=== PATIENT | female | born 1980 | race Caucasian/White ===

== ENCOUNTER 2021-02-27 15:19 | Inpatient (IN) ==
[2021-02-27] MEDS ORDERED: DEXTROSE 50% 25 GM/50 ML VIAL IV ONE (15:47)
[2021-02-27] MEDS ORDERED: SODIUM CHLORIDE 0.9% 500 ML IV STA ×2 (16:33→18:56)
[2021-02-27] MEDS ORDERED: ONDANSETRON 4 MG/2 ML VIAL IV ONE (16:33)
[2021-02-27] MEDS ORDERED: DEXAMETHASONE 10 MG/1 ML VIAL ONE (16:53)
[2021-02-27 17:31] LABS: Basophils % 0.2 % (0.0-0.8); Hematocrit 40.9 VOL% (35.7-47.0); Hemoglobin 13.3 GM/DL (12.0-16.0); Immature Granulocytes % 1.4 %; Immature Granulocytes Absolute 0.08 #; Lymphocytes # 0.5 10*3/uL (1.4-4.0); Lymphocytes % 8.4 % (21.3-54.2); Mean Corpuscular HGB Conc 32.5 GM/DL (32-36); Mean Corpuscular Volume 90.1 FL (87-102); Mean Platelet Volume 9.6 FL (9.6-12.0); Monocytes % 3.4 % (1.7-12.7); Neutrophils % 86.6 % (38.7-73.9); Platelet Count 294 T/CUMM (130-400); Red Blood Count 4.54 MC/CUMM (3.8-5.5); Red Cell Distribution Width 12.5 % (9.3-17.3); White Blood Count 5.9 T/CUMM (4-12)
[2021-02-27] MEDS: DEXAMETHASONE 10 MG/1 ML VIAL IV SCH (17:31)
[2021-02-27 17:44] LABS: INR 0.9; PT Patient Result 10.1 SECS (10.5-12.0)
[2021-02-27 17:50] LABS: Alanine Aminotransferase 78 U/L (13-56); Albumin 3.1 G/DL (3.4-5.0); Alkaline Phosphatase 99 U/L (45-117); Aspartate Amino Transferase 46 U/L (0-37); Bilirubin,Total < 0.39 MG/DL (0.20-1.00); Blood Urea Nitrogen 15 MG/DL (7-18); Calcium 8.4 MG/DL (8.5-10.1); Carbon Dioxide 29 MMOL/L (21-32); Estimated Glom Filtration Rate 111 ML/MIN; Glucose 112 MG/DL (74-106); Osmolality,Calculated 276.7 MOS/KG (273-304); Potassium 3.7 MMOL/L (3.5-5.1); Sodium 138 MMOL/L (136-145); Total Protein 6.8 G/DL (6.4-8.2)
[2021-02-27] MEDS ORDERED: LEVOFLOXACIN INJ 750 MG/150 ML PREMIX IV STA (18:56)
[2021-02-27] MEDS ORDERED: AZITHROMYCIN INJ 500 MG in SODIUM CHLORIDE 0.9% 250 ML IV ONE (19:48)
[2021-02-27] MEDS ORDERED: DEXTROSE 50% 25 GM/50 ML VIAL IV PRN (19:54)
[2021-02-27] MEDS ORDERED: GLUCAGON 1 MG VIAL IM PRN (19:54)
[2021-02-27] MEDS: ENOXAPARIN 40 MG/0.4 ML SYRINGE SUBCUT SCH (20:53)
[2021-02-27] MEDS: guaiFENesin 200 MG/10 ML UDCUP PO SCH (20:53)
[2021-02-27] MEDS: cefTRIAXone 1,000 MG in SODIUM CHLORIDE 0.9% 100 ML IV SCH (20:53)
[2021-02-27] MEDS: FAMOTIDINE 20 MG TABLET PO SCH (23:45)
[2021-02-27] MEDS: ASCORBIC ACID 500 MG TABLET PO SCH (23:46)
[2021-02-28] MEDS: guaiFENesin 200 MG/10 ML UDCUP PO SCH ×3 (05:17→20:05)
[2021-02-28 05:41] LABS: Basophils % 0.4 % (0.0-0.8); Hematocrit 37.6 VOL% (35.7-47.0); Hemoglobin 12.3 GM/DL (12.0-16.0); Immature Granulocytes % 3.1 %; Immature Granulocytes Absolute 0.07 #; Lymphocytes # 0.5 10*3/uL (1.4-4.0); Lymphocytes % 22.7 % (21.3-54.2); Mean Corpuscular HGB Conc 32.7 GM/DL (32-36); Mean Corpuscular Volume 90.2 FL (87-102); Mean Platelet Volume 9.7 FL (9.6-12.0); Monocytes % 7.9 % (1.7-12.7); Neutrophils % 65.9 % (38.7-73.9); Platelet Count 255 T/CUMM (130-400); Red Blood Count 4.17 MC/CUMM (3.8-5.5); Red Cell Distribution Width 12.4 % (9.3-17.3); White Blood Count 2.3 T/CUMM (4-12)
[2021-02-28 06:02] LABS: Alanine Aminotransferase 65 U/L (13-56); Albumin 2.7 G/DL (3.4-5.0); Alkaline Phosphatase 91 U/L (45-117); Aspartate Amino Transferase 36 U/L (0-37); Bilirubin,Direct < 0.100 MG/DL (0.0-0.20); Bilirubin,Indirect 0.3 MG/DL (0.0-1.0); Bilirubin,Total < 0.39 MG/DL (0.20-1.00); Total Protein 6.7 G/DL (6.4-8.2)
[2021-02-28 06:07] LABS: Ferritin 272.6 ng/mL (8-252)
[2021-02-28] MEDS ORDERED: REMDESIVIR 200 MG in SODIUM CHLORIDE 0.9% 210 ML IV ONE (09:00)
[2021-02-28] MEDS: DEXAMETHASONE 10 MG/1 ML VIAL IV SCH (09:16)
[2021-02-28] MEDS: DEXAMETHASONE 4 MG/1 ML VIAL IV SCH (09:17)
[2021-02-28] MEDS: ASCORBIC ACID 500 MG TABLET PO SCH ×2 (09:18→20:30)
[2021-02-28] MEDS: CHOLECALCIFEROL 1,000 UNIT TABLET PO SCH (09:18)
[2021-02-28] MEDS: FAMOTIDINE 20 MG TABLET PO SCH ×2 (09:18→20:30)
[2021-02-28] MEDS: ZINC GLUCONATE 50 MG TABLET PO SCH (09:18)
[2021-02-28 10:08] LABS: Calcium 8.4 MG/DL (8.5-10.1); Osmolality,Calculated 283.3 MOS/KG (273-304); Potassium 3.7 MMOL/L (3.5-5.1)
[2021-02-28] MEDS: AZITHROMYCIN INJ 500 MG in SODIUM CHLORIDE 0.9% 250 ML IV SCH (19:50)
[2021-02-28] MEDS: ENOXAPARIN 40 MG/0.4 ML SYRINGE SUBCUT SCH (20:05)
[2021-02-28] MEDS: cefTRIAXone 1,000 MG in SODIUM CHLORIDE 0.9% 100 ML IV SCH (21:35)
[2021-03-01] MEDS: guaiFENesin 200 MG/10 ML UDCUP PO SCH ×3 (03:47→21:02)
[2021-03-01 04:30] VITALS: BP 130/87
[2021-03-01 05:26] LABS: Basophils % 0.2 % (0.0-0.8); Hematocrit 35.5 VOL% (35.7-47.0); Hemoglobin 11.4 GM/DL (12.0-16.0); Immature Granulocytes % 2.7 %; Immature Granulocytes Absolute 0.13 #; Lymphocytes # 1.3 10*3/uL (1.4-4.0); Lymphocytes % 26.4 % (21.3-54.2); Mean Corpuscular HGB Conc 32.1 GM/DL (32-36); Mean Corpuscular Volume 91.7 FL (87-102); Mean Platelet Volume 9.4 FL (9.6-12.0); Neutrophils % 60.7 % (38.7-73.9); Platelet Count 310 T/CUMM (130-400); Red Blood Count 3.87 MC/CUMM (3.8-5.5); Red Cell Distribution Width 12.2 % (9.3-17.3); White Blood Count 4.8 T/CUMM (4-12)
[2021-03-01 05:53] LABS: Band Neutrophils 1 % (0-10); Lymphocytes 21 % (20-55); Platelet Estimate Adequate; Segmented Neutrophils 70 % (50-85); Total Cells Counted 100
[2021-03-01 05:54] LABS: Hypochromasia Slight; Microcytosis Slight
[2021-03-01 06:05] LABS: Albumin 2.3 G/DL (3.4-5.0); Bilirubin,Total 1.6 MG/DL (0.20-1.00); Calcium 8.5 MG/DL (8.5-10.1); Osmolality,Calculated 283.1 MOS/KG (273-304); Potassium 3.5 MMOL/L (3.5-5.1)
[2021-03-01] MEDS: DEXAMETHASONE 4 MG/1 ML VIAL IV SCH (08:18)
[2021-03-01] MEDS: ASCORBIC ACID 500 MG TABLET PO SCH ×2 (08:18→21:02)
[2021-03-01] MEDS: FAMOTIDINE 20 MG TABLET PO SCH ×2 (08:18→21:02)
[2021-03-01] MEDS: CHOLECALCIFEROL 1,000 UNIT TABLET PO SCH (08:18)
[2021-03-01] MEDS: ZINC GLUCONATE 50 MG TABLET PO SCH (08:18)
[2021-03-01] MEDS: REMDESIVIR 100 MG in SODIUM CHLORIDE 0.9% 100 ML IV SCH (09:13)
[2021-03-01] MEDS: DEXAMETHASONE 10 MG/1 ML VIAL IV SCH (09:40)
[2021-03-01] MEDS ORDERED: ALPRAZolam 0.5 MG TABLET PO PRN (11:56)
[2021-03-01] MEDS: AZITHROMYCIN INJ 500 MG in SODIUM CHLORIDE 0.9% 250 ML IV SCH (18:46)
[2021-03-01] MEDS: ENOXAPARIN 40 MG/0.4 ML SYRINGE SUBCUT SCH (21:02)
[2021-03-01] MEDS: cefTRIAXone 1,000 MG in SODIUM CHLORIDE 0.9% 100 ML IV SCH (21:03)
[2021-03-01] MEDS ORDERED: FLUCONAZOLE 150 MG TABLET PO ONE (23:19)
[2021-03-02] MEDS: guaiFENesin 200 MG/10 ML UDCUP PO SCH ×2 (04:43→13:17)
[2021-03-02 05:50] LABS: Basophils # 0.1 10*3/uL (0.0-0.2); Basophils % 0.8 % (0.0-0.8); Hematocrit 37.1 VOL% (35.7-47.0); Hemoglobin 12.1 GM/DL (12.0-16.0); Immature Granulocytes % 5.9 %; Immature Granulocytes Absolute 0.38 #; Lymphocytes # 1.5 10*3/uL (1.4-4.0); Lymphocytes % 22.7 % (21.3-54.2); Mean Corpuscular HGB Conc 32.6 GM/DL (32-36); Mean Corpuscular Volume 90.3 FL (87-102); Mean Platelet Volume 9.5 FL (9.6-12.0); Monocytes % 9.8 % (1.7-12.7); Neutrophils % 60.8 % (38.7-73.9); Platelet Count 374 T/CUMM (130-400); Red Blood Count 4.11 MC/CUMM (3.8-5.5); Red Cell Distribution Width 11.9 % (9.3-17.3); White Blood Count 6.4 T/CUMM (4-12)
[2021-03-02 06:17] LABS: Hypochromasia 1+; Lymphocytes 17 % (20-55); Microcytosis 1+; Platelet Estimate Adequate; Segmented Neutrophils 78 % (50-85); Total Cells Counted 100
[2021-03-02 06:30] LABS: Albumin 2.5 G/DL (3.4-5.0); Bilirubin,Total 0.7 MG/DL (0.20-1.00); Calcium 8.5 MG/DL (8.5-10.1); Osmolality,Calculated 275.7 MOS/KG (273-304); Potassium 3.6 MMOL/L (3.5-5.1); Total Protein 6.1 G/DL (6.4-8.2)
[2021-03-02] MEDS: DEXAMETHASONE 4 MG/1 ML VIAL IV SCH (08:21)
[2021-03-02] MEDS: ZINC GLUCONATE 50 MG TABLET PO SCH (08:21)
[2021-03-02] MEDS: CHOLECALCIFEROL 1,000 UNIT TABLET PO SCH (08:21)
[2021-03-02] MEDS: ASCORBIC ACID 500 MG TABLET PO SCH (08:21)
[2021-03-02] MEDS: FAMOTIDINE 20 MG TABLET PO SCH (08:21)
[2021-03-02] MEDS: REMDESIVIR 100 MG in SODIUM CHLORIDE 0.9% 100 ML IV SCH (10:26)
[2021-03-02] MEDS ORDERED: ALBUTEROL INHALER 18 GM INH PRN (10:38)
== END 2021-03-02 12:55 | disposition home or self-care (01) | DRG 177 ==
LOC: N.ED 15:19 → SUATTDRO 19:54 → N.EDINP 19:54 → N.CC 02-28 21:04
PROVIDERS: ADMIT Internal Medicine; ATTEND Internal Medicine